=== PATIENT | female | born 1985 | race African-American/Black ===

== ENCOUNTER 2018-12-24 10:11 | Emergency (ER) | payer MEDICAID, SELFPAY ==
[2018-12-24] MEDS ORDERED: Ibuprofen 600 MG TAB ONE (10:38)
== END 2018-12-24 10:45 | disposition home or self-care (01) ==
LOC: MADERS 10:11
DX: B34.9 Viral infection, unspecified (principal); Z71.6 Tobacco abuse counseling; F31.9 Bipolar disorder, unspecified; F17.210 Nicotine dependence, cigarettes, uncomplicated; Z79.899 Other long term (current) drug therapy
CPT/HCPCS: 99406

== ENCOUNTER 2019-10-03 15:14 | Emergency (ER) | payer SELFPAY ==
--- NOTE | 2019-10-03 16:34 | RAD ---
EXAM: Chest one view: HISTORY: Dyspnea COMPARISON: None FINDINGS: Heart size: Within normal limits. Lungs: Clear of acute process. No evidence for confluent pneumonia, pleural effusion, acute edema, or pneumothorax, or other signifi cant acute process. IMPRESSION: No significant acute intrathoracic disease.
== END 2019-10-03 16:49 | disposition home or self-care (01) ==
LOC: MADERS 15:14
DX: J11.1 Influenza due to unidentified influenza virus with other respiratory manifestations (principal); F41.9 Anxiety disorder, unspecified; F31.9 Bipolar disorder, unspecified; F17.210 Nicotine dependence, cigarettes, uncomplicated; Z79.899 Other long term (current) drug therapy
CPT/HCPCS: 71045; 87081; 87430; 87804

== ENCOUNTER 2019-11-23 13:30 | Emergency (ER) | payer SELFPAY | END 2019-11-23 14:42 | disposition home or self-care (01) | LOC: MADERS 13:30 | DX: R05 Cough (principal); F41.9 Anxiety disorder, unspecified; F17.210 Nicotine dependence, cigarettes, uncomplicated; F31.9 Bipolar disorder, unspecified | CPT/HCPCS: 99281 ==

== ENCOUNTER 2023-01-29 16:49 | Emergency (ER) | payer SELFPAY ==
[2023-01-29] MEDS ORDERED: predniSONE 20 MG TAB ONE (17:39)
[2023-01-29] MEDS ORDERED: Acetaminophen 500 MG TAB ONE (17:39)
[2023-01-29] MEDS ORDERED: Ondansetron ODT 4 MG TAB ONE (17:39)
== END 2023-01-29 18:13 | disposition home or self-care (01) ==
LOC: MADERS 16:49
DX: U07.1 COVID-19 (principal); F17.210 Nicotine dependence, cigarettes, uncomplicated
CPT/HCPCS: 87081; 87430; 87804; 99283; J7512; Q0162